=== PATIENT | female | born 1990 | race Caucasian/White ===

== ENCOUNTER 2018-03-12 07:10 | Inpatient (IN) | payer OTHER ==
[2018-03-12] MEDS ORDERED: Ondansetron 4 MG/2 ML SDV IVPUSH PRN ×2 (07:13→09:50)
[2018-03-12] MEDS ORDERED: Nalbuphine 20 MG/ML 1 ML Syringe IVPUSH PRN (07:13)
[2018-03-12] MEDS ORDERED: Misoprostol 100 MCG Tab VAG PRN (07:13)
[2018-03-12] MEDS ORDERED: Sodium Chloride 0.9% 10 ML Syringe FLUSH PRN (07:13)
[2018-03-12] MEDS ORDERED: Oxytocin/Lactated Ringers 10 UNIT/1,000 ML BAG IV SCH ×2 (07:15)
--- NOTE | 2018-03-12 07:16 | PCM.LDHP ---
L&D History of Present Illness - General Date of Service: 03/12/18 Admit Problem/Dx: Patient Status Order with Admit Dx/Problem 03/12/18 07:13 Patient Status [ADT] Routine Admission Diagnosis/Problem Admission Diagnosis/Problem Gestational hypertension Source of Information: Patient History Limitations: Reports: No Limitations - History of Present Illness Introduction:: Patient is a 27 y/o at 37 3/7 wks who presents for IOL for gestational HTN. Doing well since I've seen her last. No issues with headaches, vision changes, RUQ pain. No other concerns - Related Data Allergies/Adverse Reactions: Allergies Allergy/AdvReac Type Severity Reaction Status Date / Time No Known Allergies Allergy Verified 03/12/18 07:46 Home Medications: Home Meds PNV95/Ferrous Fumarate/FA [ Tablet] 1 tab PO DAILY 03/12/18 [History] Past Medical History Genitourinary History: Reports: Pyelonephritis, UTI, Recurrent Neurological History: Reports: Headaches, Chronic - Past Surgical History HEENT Surgical History: Reports: Oral Surgery (Jaw surgery) Male Surgical History: Reports: Other (See Below) (Bladder/reflux procedure as child) Musculoskeletal Surgical History: Reports: Shoulder Surgery (Right) Social & Family History - Tobacco Use Smoking Status *Q: Never Smoker - Alcohol Use Alcohol Use History: No - Recreational Drug Use Recreational Drug Use: No H&P Review of Systems - Review of Systems: Review Of Systems: See Below General: Reports: No Symptoms Pulmonary: Reports: No Symptoms Cardiovascular: Reports: No Symptoms Gastrointestinal: Reports: No Symptoms Genitourinary: Reports: No Symptoms Musculoskeletal: Reports: No Symptoms Psychiatric: Reports: No Symptoms Neurological: Reports: No Symptoms L&D Exam - Exam Exam: See Below - OB Specific Contraction Intensity: Irritability Movement: Active Heart Tones: Present Heart Tones per Min: 140 Heart Rate (FHR) Variability: Moderate (6-25 bmp) Presentation: Vertex - Rob Score Rob Score Cervix Position: Posterior Rob Score Consistency: Medium Rob Score Effacement: 31-50% Rob Score Dilation: 1-2 cm Rob Score Infant's Station: -2 Rob Score Total: 4 - Exam General: Alert, Oriented, Cooperative Lungs: Clear to Auscultation, Normal Respiratory Effort Cardiovascular: Regular Rate, Regular Rhythm GI/Abdominal Exam: Soft, Non-Tender Genitourinary: Normal external exam Extremities: Normal Inspection Skin: Warm, Dry, Intact - Patient Data Result Diagrams: 03/12/18 07:30 03/12/18 07:30 - Problem List (1) 37 weeks gestation of SNOMED Code(s): 54690176 ICD Code: Z3A.37 - 37 WEEKS GESTATION OF Status: Acute Current Visit: Yes (2) Gestational hypertension SNOMED Code(s): 556900938, 353927851 ICD Code: O13.9 - GESTATIONAL HTN W/O SIGNIFICANT PROTEINURIA, UNSP TRIMESTER Status: Acute Current Visit: Yes Problem List Initiated/Reviewed/Updated: Yes Orders Last 24hrs: Active Orders 24 hr Category Date Time Status Patient Status [ADT] Routine ADT 03/12/18 07:13 Ordered Communication Order [RC] ASDIRECTED Care 03/12/18 07:13 Ordered Communication Order [RC] ASDIRECTED Care 03/12/18 07:13 Ordered Communication Order [RC] ASDIRECTED Care 03/12/18 07:13 Ordered Heart Tones [RC] ASDIRECTED Care 03/12/18 07:13 Ordered Monitoring [RC] INTERMITTENT Care 03/12/18 07:13 Ordered Non Stress Test [RC] PER UNIT ROUTINE Care 03/12/18 07:13 Ordered Non Stress Test [RC] PER UNIT ROUTINE Care 03/12/18 07:13 Ordered Notify Provider [RC] ASDIRECTED Care 03/12/18 07:13 Ordered Notify Provider [RC] PRN Care 03/12/18 07:13 Ordered Peripheral IV Care [RC] . DIRECTED Care 03/12/18 07:13 Ordered Vaginal Exam [RC] ASDIRECTED Care 03/12/18 07:13 Ordered Vital Signs [RC] ASDIRECTED Care 03/12/18 07:13 Ordered Vital Signs [RC] PER UNIT ROUTINE Care 03/12/18 07:13 Ordered Regular Diet [DIET] Diet 03/12/18 Breakfast Ordered ALANINE AMINOTRANSFERASE,ALT [CHEM] Routine Lab 03/12/18 07:13 Ordered ASPARTATE AMNIOTRANSFERASE,AST [CHEM] Routine Lab 03/12/18 07:13 Ordered CBC W/O DIFF,HEMOGRAM [HEME] Routine Lab 03/12/18 07:13 Ordered CREATININE W/GFR [CHEM] Routine Lab 03/12/18 07:13 Ordered PROTEIN/CREATININE RATIO,URINE [URCHEM] Routine Lab 03/12/18 07:13 Ordered RAPID PLASMA REAGIN,RPR [CHEM] Routine Lab 03/12/18 07:13 Ordered TYPE AND SCREEN [BBK] Routine Lab 03/12/18 07:13 Ordered Lactated Ringers [Ringers, Lactated] 1,000 ml Med 03/12/18 07:15 Ordered IV ASDIRECTED Nalbuphine [Nubain] Med 03/12/18 07:13 Ordered 10 mg IVPUSH Q2H PRN Ondansetron [Zofran] Med 03/12/18 07:13 Ordered 4 mg IVPUSH Q4H PRN Oxytocin/Lactated Ringers [Pitocin in LR 10 Units/1,000 Med 03/12/18 07:15 Ordered ML] 10 unit in 1,000 ml IV .CONTINUOUS Oxytocin/Lactated Ringers [Pitocin in LR 10 Units/1,000 Med 03/12/18 07:15 Ordered ML] 10 unit in 1,000 ml IV TITRATE Sodium Chloride 0.9% [Saline Flush] Med 03/12/18 07:13 Ordered 10 ml FLUSH ASDIRECTED PRN miSOPROStol [Cytotec] Med 03/12/18 07:13 Ordered 25 mcg VAG Q4H PRN Electronic Heart Tones Ext w TOCO [WOMSER] Oth 03/12/18 07:13 Ordered Routine Electronic Heart Tones Internal [WOMSER] Per Unit Oth 03/12/18 07:13 Ordered Routine Peripheral IV Insertion Adult [OM.PC] Routine Oth 03/12/18 07:13 Ordered Resuscitation Status Routine Resus Stat 03/12/18 07:13 Ordered Assessment/Plan Comment:: 27 y/o at 37 3/7 wks presents for IOL * Labs * GBS negative, no need for antibiotics * Cytotec to be placed. Roman bulb to be inserted when able. * Pain management per patient preference * Anticipate
[2018-03-12] MEDS: Misoprostol 25 MCG (1/4 of 100 MCG) Tab VAG PRN ×3 (08:07→16:16)
[2018-03-12] MEDS ORDERED: fentaNYL 100 MCG/2 ML SDV EPIDUR PRN (09:50)
[2018-03-12] MEDS ORDERED: ePHEDrine 50 MG/ML SDV IVPUSH PRN (09:50)
--- NOTE | 2018-03-12 09:53 | PCM.PREANE ---
Preanesthetic Assessment - Anesthesia/Transfusion/Family Hx Anesthesia History: Prior Anesthesia Without Reaction Family History of Anesthesia Reaction: No Transfusion History: No Prior Transfusion(s) Intubation History: Unknown - Review of Systems General: No Symptoms Pulmonary: No Symptoms Cardiovascular: No Symptoms (Gestational HTN noted with last few months of .), Edema (bilateral peripheral with ) Gastrointestinal: No Symptoms Neurological: No Symptoms Other: Reports: None - Physical Assessment NPO Status Date: 03/12/18 NPO Status Time: 09:00 Pulse: 78 O2 Sat by Pulse Oximetry: 99 Respiratory Rate: 16 Blood Pressure: 140/98 Temperature: 36.5 C Vital Signs: Last Vital Signs Temp 36.5 C 03/12/18 07:13 Pulse 78 03/12/18 07:13 Resp 16 03/12/18 07:13 BP 140/98 H 03/12/18 07:13 Pulse Ox Height: 1.73 m Weight: 99.904 kg ASA Class: 2 Mental Status: Alert & Oriented x3 Airway Class: Mallampati = 2 Dentition: Reports: Normal Dentition, Caries Thyro-Mental Finger Breadths: 3 Mouth Opening Finger Breadths: 3 ROM/Head Extension: Full Lungs: Clear to Auscultation, Normal Respiratory Effort Cardiovascular: Regular Rate, Regular Rhythm, No Murmurs - Lab Values: Laboratory Last Values WBC 11.26 K/mm3 (3.98-10.04) H 03/12/18 07:30 RBC 3.91 M/mm3 (3.98-5.22) L 03/12/18 07:30 Hgb 9.8 gm/L (11.2-15.7) L 03/12/18 07:30 Hct 30.9 % (34.1-44.9) L 03/12/18 07:30 MCV 79.0 fl (79.4-94.8) L 03/12/18 07:30 MCH 25.1 pg (25.6-32.2) L 03/12/18 07:30 MCHC 31.7 g/dl (32.2-35.5) L 03/12/18 07:30 RDW Std Deviation 43.7 fL (36.4-46.3) 03/12/18 07:30 Plt Count 281 K/mm3 (182-369) 03/12/18 07:30 MPV 11.5 fl (9.4-12.3) 03/12/18 07:30 Creatinine 0.8 mg/dL (0.55-1.02) 03/12/18 07:30 Est Cr Clr Drug Dosing 105.61 mL/min 03/12/18 07:30 Estimated GFR (MDRD) > 60 mL/min (>60) 03/12/18 07:30 AST 15 U/L (15-37) 03/12/18 07:30 ALT 13 U/L (14-59) L 03/12/18 07:30 Blood Type A POSITIVE 03/12/18 07:30 Gel Antibody Screen Negative 03/12/18 07:30 Above labs reviewed and noted and within acceptable ranges to proceed with epidural if desired. - Allergies Allergies/Adverse Reactions: Allergies Allergy/AdvReac Type Severity Reaction Status Date / Time No Known Allergies Allergy Verified 03/12/18 07:46 - Anesthesia Plan Pre-Op Medication Ordered: None - Acknowledgements Anesthesia Type Planned: Epidural Pt an Appropriate Candidate for the Planned Anesthesia: Yes Alternatives and Risks of Anesthesia Discussed w Pt/Guardian: Yes Pt/Guardian Understands and Agrees with Anesthesia Plan: Yes PreAnesthesia Questionnaire Cardiovascular History: Reports: Other (See Below) Other Cardiovascular History: gestational hypertension Other Genitourinary History: 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: - Past Surgical History Musculoskeletal Surgical History: Reports: Shoulder Surgery - SUBSTANCE USE Smoking Status *Q: Never Smoker Second Hand Smoke Exposure: No Recreational Drug Use History: No - HOME MEDS Home Medications: Home Meds PNV95/Ferrous Fumarate/FA [ Tablet] 1 tab PO DAILY 03/12/18 [History] - CURRENT (IN HOUSE) MEDS Current Meds: Current Medications Fentanyl/Bupivacaine HCl (Fentanyl/Bupivacaine/Ns 2 Mcg-0.125% 100 Ml) 100 ml EPIDUR ASDIRECTED CONNOR Lactated Ringer's (Ringers, Lactated) 1,000 mls @ 40 mls/hr IV ASDIRECTED CONNOR Oxytocin/Lactated Ringer's (Pitocin In Lr 10 Units/1,000 Ml) 10 unit in 1,000 mls @ 12 mls/hr IV TITRATE CONNOR; Protocol Oxytocin/Lactated Ringer's (Pitocin In Lr 10 Units/1,000 Ml) 10 unit in 1,000 mls @ 500 mls/hr IV .CONTINUOUS CONNOR Misoprostol (Cytotec) 25 mcg VAG Q4H PRN PRN Reason: cervical ripening Last Admin: 03/12/18 08:07 Dose: 25 mcg Nalbuphine HCl (Nubain) 10 mg IVPUSH Q2H PRN PRN Reason: pain Ondansetron HCl (Zofran) 4 mg IVPUSH Q4H PRN PRN Reason: Nausea/Vomiting Sodium Chloride (Saline Flush) 10 ml FLUSH ASDIRECTED PRN PRN Reason: Keep Vein Open Discontinued Medications Misoprostol (Cytotec) 25 mcg VAG Q4H PRN PRN Reason: cervical ripening
[2018-03-12] MEDS ORDERED: Bupivacaine/fentaNYL/NS 100 ML Bag EPIDUR SCH (10:00)
--- NOTE | 2018-03-12 12:04 | PCM.PNLD ---
Labor Progress Note - VS & Meds Vital Signs: Last Vital Signs Temp 36.5 C 03/12/18 10:09 Pulse 78 03/12/18 10:09 Resp 16 03/12/18 10:09 BP 140/98 H 03/12/18 10:09 Pulse Ox 99 03/12/18 10:09 Active Medications: Current Medications Ephedrine Sulfate (Ephedrine Sulfate) 5 mg IVPUSH ASDIRECTED PRN PRN Reason: Hypotension Fentanyl (Sublimaze) 100 mcg EPIDUR Q3H PRN PRN Reason: Pain Fentanyl/Bupivacaine HCl (Fentanyl/Bupivacaine/Ns 2 Mcg-0.125% 100 Ml) 100 ml EPIDUR ASDIRECTED CONNOR Lactated Ringer's (Ringers, Lactated) 1,000 mls @ 40 mls/hr IV ASDIRECTED CONNOR Oxytocin/Lactated Ringer's (Pitocin In Lr 10 Units/1,000 Ml) 10 unit in 1,000 mls @ 12 mls/hr IV TITRATE CONNOR; Protocol Oxytocin/Lactated Ringer's (Pitocin In Lr 10 Units/1,000 Ml) 10 unit in 1,000 mls @ 500 mls/hr IV .CONTINUOUS CONNOR Misoprostol (Cytotec) 25 mcg VAG Q4H PRN PRN Reason: cervical ripening Last Admin: 03/12/18 12:01 Dose: 25 mcg Nalbuphine HCl (Nubain) 10 mg IVPUSH Q2H PRN PRN Reason: pain Ondansetron HCl (Zofran) 4 mg IVPUSH Q4H PRN PRN Reason: Nausea/Vomiting Ondansetron HCl (Zofran) 4 mg IVPUSH ONETIME PRN PRN Reason: Nausea/Vomiting Sodium Chloride (Saline Flush) 10 ml FLUSH ASDIRECTED PRN PRN Reason: Keep Vein Open Discontinued Medications Misoprostol (Cytotec) 25 mcg VAG Q4H PRN PRN Reason: cervical ripening - Uterine Contractions Uterine Monitoring Mode: External [place] Contraction Intensity: Irritability Uterine Resting Tone: Soft - Monitoring Monitor Mode: External Ultrasound Heart Rate (FHR) Baseline: 145 Heart Rate (FHR) Variability: Moderate (6-25 bmp) Accelerations: Present, 15x15 Decelerations: None - Vaginal Exam Dilation (cm): 1 Effacement (Percent): 50 Station: -3 Cervical Position: Midposition - Labor Progress (Free Text) Labor Progress: Doing well. Some cramping with Cytotec. Roman bulb and 2nd cytotec placed. Will reassess in another 4 hours.
[2018-03-12] MEDS ORDERED: Misoprostol 25 MCG (1/4 of 100 MCG) Tab ONE (19:25)
--- NOTE | 2018-03-12 19:40 | PCM.PNLD ---
Labor Progress Note - VS & Meds Vital Signs: Last Vital Signs Temp 36.5 C 03/12/18 10:09 Pulse 78 03/12/18 10:09 Resp 16 03/12/18 10:09 BP 140/98 H 03/12/18 10:09 Pulse Ox 99 03/12/18 10:09 Active Medications: Current Medications Ephedrine Sulfate (Ephedrine Sulfate) 5 mg IVPUSH ASDIRECTED PRN PRN Reason: Hypotension Fentanyl (Sublimaze) 100 mcg EPIDUR Q3H PRN PRN Reason: Pain Fentanyl/Bupivacaine HCl (Fentanyl/Bupivacaine/Ns 2 Mcg-0.125% 100 Ml) 100 ml EPIDUR ASDIRECTED CONNOR Lactated Ringer's (Ringers, Lactated) 1,000 mls @ 40 mls/hr IV ASDIRECTED CONNOR Oxytocin/Lactated Ringer's (Pitocin In Lr 10 Units/1,000 Ml) 10 unit in 1,000 mls @ 12 mls/hr IV TITRATE CONNOR; Protocol Oxytocin/Lactated Ringer's (Pitocin In Lr 10 Units/1,000 Ml) 10 unit in 1,000 mls @ 500 mls/hr IV .CONTINUOUS CONNOR Nalbuphine HCl (Nubain) 10 mg IVPUSH Q2H PRN PRN Reason: pain Ondansetron HCl (Zofran) 4 mg IVPUSH Q4H PRN PRN Reason: Nausea/Vomiting Ondansetron HCl (Zofran) 4 mg IVPUSH ONETIME PRN PRN Reason: Nausea/Vomiting Sodium Chloride (Saline Flush) 10 ml FLUSH ASDIRECTED PRN PRN Reason: Keep Vein Open Discontinued Medications Misoprostol (Cytotec) 25 mcg VAG Q4H PRN PRN Reason: cervical ripening Misoprostol (Cytotec) 25 mcg VAG Q4H PRN PRN Reason: cervical ripening Last Admin: 03/12/18 16:16 Dose: 25 mcg Misoprostol (Cytotec) Confirm Administered Dose 25 mcg .ROUTE .STK-MED ONE Stop: 03/12/18 19:26 - Uterine Contractions Uterine Monitoring Mode: External [place] Contraction Intensity: Mild to Moderate Uterine Resting Tone: Soft - Monitoring Monitor Mode: External Ultrasound Heart Rate (FHR) Baseline: 140 Heart Rate (FHR) Variability: Moderate (6-25 bmp) Accelerations: Present, 15x15 Decelerations: Variable, Intermittent (<50% x 20 min) Strip Review: Category II - Vaginal Exam Dilation (cm): 3-4 Effacement (Percent): 75 Station: -2 Cervical Position: Posterior - Labor Progress (Free Text) Labor Progress: Doing well. Roman bulb just removed. S/p 3 doses of cytotec. Will proceed with pitocin. Discussed AROM if needed. She agrees. BP's mostly mild range. Feeling well otherwise.
[2018-03-12] MEDS: Lactated Ringers 1,000 ML IV SCH (20:15)
[2018-03-12] MEDS ORDERED: Bupivacaine 0.25% 10 ML SDV ONE (22:00)
[2018-03-13] MEDS: Lactated Ringers 1,000 ML IV SCH ×3 (04:24→08:11)
--- NOTE | 2018-03-13 06:40 | PCM.PNLD ---
Labor Progress Note - VS & Meds Vital Signs: Last Vital Signs Temp 36.5 C 03/12/18 10:09 Pulse 78 03/12/18 10:09 Resp 16 03/12/18 10:09 BP 140/98 H 03/12/18 10:09 Pulse Ox 99 03/12/18 10:09 Active Medications: Current Medications Ephedrine Sulfate (Ephedrine Sulfate) 5 mg IVPUSH ASDIRECTED PRN PRN Reason: Hypotension Fentanyl (Sublimaze) 100 mcg EPIDUR Q3H PRN PRN Reason: Pain Fentanyl/Bupivacaine HCl (Fentanyl/Bupivacaine/Ns 2 Mcg-0.125% 100 Ml) 100 ml EPIDUR ASDIRECTED CONNOR Lactated Ringer's (Ringers, Lactated) 1,000 mls @ 40 mls/hr IV ASDIRECTED CONNOR Last Admin: 03/13/18 04:24 Dose: 40 mls/hr Oxytocin/Lactated Ringer's (Pitocin In Lr 10 Units/1,000 Ml) 10 unit in 1,000 mls @ 12 mls/hr IV TITRATE CONNOR; Protocol Last Titration: 03/13/18 04:24 Dose: 14 munits/min, 84 mls/hr Oxytocin/Lactated Ringer's (Pitocin In Lr 10 Units/1,000 Ml) 10 unit in 1,000 mls @ 500 mls/hr IV .CONTINUOUS CNONOR Nalbuphine HCl (Nubain) 10 mg IVPUSH Q2H PRN PRN Reason: pain Ondansetron HCl (Zofran) 4 mg IVPUSH Q4H PRN PRN Reason: Nausea/Vomiting Ondansetron HCl (Zofran) 4 mg IVPUSH ONETIME PRN PRN Reason: Nausea/Vomiting Sodium Chloride (Saline Flush) 10 ml FLUSH ASDIRECTED PRN PRN Reason: Keep Vein Open Discontinued Medications Misoprostol (Cytotec) 25 mcg VAG Q4H PRN PRN Reason: cervical ripening Misoprostol (Cytotec) 25 mcg VAG Q4H PRN PRN Reason: cervical ripening Last Admin: 03/12/18 16:16 Dose: 25 mcg Misoprostol (Cytotec) Confirm Administered Dose 25 mcg .ROUTE .STK-MED ONE Stop: 03/12/18 19:26 Last Admin: 03/12/18 21:49 Dose: Not Given - Uterine Contractions Uterine Monitoring Mode: External [place] Contraction Intensity: Irritability Uterine Resting Tone: Soft - Monitoring Monitor Mode: External Ultrasound Heart Rate (FHR) Baseline: 135 Heart Rate (FHR) Variability: Moderate (6-25 bmp) Accelerations: Present, 15x15 Decelerations: Variable, Intermittent (<50% x 20 min) Strip Review: Category II - Vaginal Exam Dilation (cm): 6 - Labor Progress (Free Text) Labor Progress: Last exam at 0600 by nursing staff shows patient is 6 cm. Pitocin at 14. Continue present management
[2018-03-13] MEDS ORDERED: Misoprostol 200 MCG Tab PO STA (11:32)
--- NOTE | 2018-03-13 11:34 | PCM.DEL ---
L & D Note - General Info Date of Service: 03/13/18 - Delivery Note Labor: Induced by Oxytocin Cervical Ripening Method: Balloon Device, Misoprostil Delivery Outcome: Livebirth Delivery Method: Spontaneous Vaginal Delivery-Single Infant Delivery Mode: Spontaneous Presentation: Right Occiput Anterior (MARY) Nuchal Cord: Present, Reduced Anesthesia Type: Epidural Amniotic Fluid Description: Clear Episiotomy Type: None Laceration: 2nd Degree, Labial Suture type: Vicryl Suture size: 2-0 Placenta: Intact, Spontaneous Cord: 3 Vessels Estimated Blood Loss: 500 Resuscitation Needed: Yes [place]: Bulb Syringe, Stimulated, Warmed, [place] Used, Warmer Used Delivery Comments (Free Text/Narrative):: Patient found to be complete and began pushing. With maternal pushing effort head delivered from an MARY presentation. Nuchal cord present and reduced. With gentle downward traction the shoulders and body delivered. Infant placed on maternal abdomen. Cord clamped and cut. Cord blood obtained. Placenta allowed time to separate and expelled intact. EBL ~500 cc at this point and so patient given 600 mcg of buccal cytotec with good tone of uterus noted. Inspection of the perineum showed bilateral labial tears. These were repaired with separate sutures of running 0 vicryl. - General Info Date of Service: 03/13/18 - Patient Data Vitals - Most Recent: Last Vital Signs Temp 36.5 C 03/12/18 10:09 Pulse 78 03/12/18 10:09 Resp 16 03/12/18 10:09 BP 140/98 H 03/12/18 10:09 Pulse Ox 99 03/12/18 10:09 Weight - Most Recent: 99.904 kg I&O - Last 24 Hours: Intake & Output 03/12/18 03/13/18 03/13/18 22:59 06:59 14:59 Intake Total 0 Balance 0 Lab Results Last 24 Hours: Laboratory Results - last 24 hr 03/12/18 Range/Units 11:00 Ur Random Creatinine 49.2 (30.0-125.0) mg/dL U Random Total Protein < 6.0 (0.0-11.8) mg/dL Protein/Creatinin Ratio TNP Med Orders - Current: Current Medications Ephedrine Sulfate (Ephedrine Sulfate) 5 mg IVPUSH ASDIRECTED PRN PRN Reason: Hypotension Fentanyl (Sublimaze) 100 mcg EPIDUR Q3H PRN PRN Reason: Pain Last Admin: 03/13/18 08:05 Dose: 100 mcg Fentanyl/Bupivacaine HCl (Fentanyl/Bupivacaine/Ns 2 Mcg-0.125% 100 Ml) 100 ml EPIDUR ASDIRECTED CONNOR Last Admin: 03/13/18 08:05 Dose: 100 ml Lactated Ringer's (Ringers, Lactated) 1,000 mls @ 40 mls/hr IV ASDIRECTED CONNOR Last Admin: 03/13/18 08:11 Dose: 40 mls/hr Oxytocin/Lactated Ringer's (Pitocin In Lr 10 Units/1,000 Ml) 10 unit in 1,000 mls @ 12 mls/hr IV TITRATE CONNOR; Protocol Last Titration: 03/13/18 04:24 Dose: 14 munits/min, 84 mls/hr Oxytocin/Lactated Ringer's (Pitocin In Lr 10 Units/1,000 Ml) 10 unit in 1,000 mls @ 500 mls/hr IV .CONTINUOUS CONNOR Last Admin: 03/13/18 11:12 Dose: 500 mls/hr Misoprostol (Cytotec) 600 mcg PO NOW STA Stop: 03/13/18 11:33 Nalbuphine HCl (Nubain) 10 mg IVPUSH Q2H PRN PRN Reason: pain Last Admin: 03/13/18 07:06 Dose: 10 mg Ondansetron HCl (Zofran) 4 mg IVPUSH Q4H PRN PRN Reason: Nausea/Vomiting Ondansetron HCl (Zofran) 4 mg IVPUSH ONETIME PRN PRN Reason: Nausea/Vomiting Sodium Chloride (Saline Flush) 10 ml FLUSH ASDIRECTED PRN PRN Reason: Keep Vein Open Discontinued Medications Misoprostol (Cytotec) 25 mcg VAG Q4H PRN PRN Reason: cervical ripening Misoprostol (Cytotec) 25 mcg VAG Q4H PRN PRN Reason: cervical ripening Last Admin: 03/12/18 16:16 Dose: 25 mcg Misoprostol (Cytotec) Confirm Administered Dose 25 mcg .ROUTE .STK-MED ONE Stop: 03/12/18 19:26 Last Admin: 03/12/18 21:49 Dose: Not Given - Problem List & Annotations (1) 37 weeks gestation of SNOMED Code(s): 32251657 Code(s): Z3A.37 - 37 WEEKS GESTATION OF Status: Acute Current Visit: Yes (2) Gestational hypertension SNOMED Code(s): 832002403, 683592580 Code(s): O13.9 - GESTATIONAL HTN W/O SIGNIFICANT PROTEINURIA, UNSP TRIMESTER Status: Acute Current Visit: Yes Qualifiers: Trimester: third trimester Qualified Code(s): O13.3 - Gestational [ -induced] hypertension without significant proteinuria, third trimester - Problem List Review Problem List Initiated/Reviewed/Updated: Yes - My Orders Last 24 Hours: My Active Orders 03/13/18 11:32 miSOPROStol [Cytotec] 600 mcg PO NOW STA 03/13/18 11:33 Patient Status Manage Transfer [TRANSFER] Routine - Assessment Assessment:: POD#0 from at 37 4/7 wks after IOL For gestational HTN - Plan Plan:: * Routine cares * Encourage * Monitor BP's closely * Discharge home in 2 days
[2018-03-13] MEDS ORDERED: Witch Hazel Medicated Pads 100/Jar TOP PRN (12:57)
[2018-03-13] MEDS ORDERED: Lanolin 100% Cream 7 GM Tube TOP PRN (12:57)
[2018-03-13] MEDS ORDERED: Acetaminophen 325 MG Tab PO PRN (12:57)
[2018-03-13] MEDS ORDERED: Benzocaine/Menthol 20%-0.5% Spray 56 GM Canister TOP PRN (12:57)
[2018-03-13] MEDS ORDERED: Ibuprofen 600 MG Tab PO PRN (12:57)
[2018-03-13] MEDS ORDERED: Docusate Sodium 100 MG Cap PO PRN (12:57)
--- NOTE | 2018-03-14 07:38 | PCM48HPAN ---
Post Anesthesia Note - EVALUATION WITHIN 48HRS OF ANESTHETIC Vital Signs in Normal Range: Yes Patient Participated in Evaluation: Yes Respiratory Function Stable: Yes Airway Patent: Yes Cardiovascular Function Stable: Yes Hydration Status Stable: Yes Pain Control Satisfactory: Yes Nausea and Vomiting Control Satisfactory: Yes Mental Status Recovered: Yes Pulse Rate: 83 Resp Rate: 14 Temperature: 36.7 C Blood Pressure: 123/84 - COMMENTS/OBSERVATIONS Free Text/Narrative:: no anesthesia complications noted
--- NOTE | 2018-03-14 07:57 | PCM.PNPP ---
- General Info Date of Service: 03/14/18 Functional Status: Reports: Pain Controlled, Tolerating Diet, Ambulating, Urinating - Review of Systems General: Reports: No Symptoms Pulmonary: Reports: No Symptoms Cardiovascular: Reports: No Symptoms Gastrointestinal: Reports: No Symptoms Genitourinary: Reports: No Symptoms Musculoskeletal: Reports: No Symptoms Neurological: Reports: No Symptoms - Patient Data Vital Signs - Most Recent: Last Vital Signs Temp 36.7 C 03/14/18 07:38 Pulse 83 03/14/18 07:38 Resp 14 03/14/18 07:38 BP 123/84 03/14/18 07:38 Pulse Ox 99 03/14/18 03:51 Weight - Most Recent: 99.904 kg I&O - Last 24 Hours: Intake & Output 03/13/18 03/14/18 03/14/18 22:59 06:59 14:59 Intake Total 70 Balance 70 Lab Results - Last 24 Hours: Laboratory Results - last 24 hr 03/12/18 Range/Units 07:30 RPR Non-reactive (NONREACTIVE) Med Orders - Current: Current Medications Acetaminophen (Tylenol) 650 mg PO Q4H PRN PRN Reason: mild pain or fever Benzocaine/Menthol (Dermoplast Pain Relief [place]) 0 gm TOP ASDIRECTED PRN PRN Reason: Perineal Comfort Measure Last Admin: 03/13/18 15:44 Dose: 1 canister Docusate Sodium (Colace) 100 mg PO BID PRN PRN Reason: Constipation Emollient Ointment (Lansinoh Hpa) 0 gm TOP ASDIRECTED PRN PRN Reason: Sore Nipples Ibuprofen (Motrin) 600 mg PO Q6H PRN PRN Reason: Mild pain or fever Last Admin: 03/13/18 13:52 Dose: 600 mg Witch Melanie (Tucks) 1 pad TOP ASDIRECTED PRN PRN Reason: Hemorrhoid pain Last Admin: 03/13/18 15:44 Dose: 1 canister Discontinued Medications Bupivacaine HCl (Sensorcaine-Mpf 0.25%) 10 ml .ROUTE .STK-MED ONE Stop: 03/12/18 22:01 Ephedrine Sulfate (Ephedrine Sulfate) 5 mg IVPUSH ASDIRECTED PRN PRN Reason: Hypotension Fentanyl (Sublimaze) 100 mcg EPIDUR Q3H PRN PRN Reason: Pain Last Admin: 03/13/18 08:05 Dose: 100 mcg Fentanyl/Bupivacaine HCl (Fentanyl/Bupivacaine/Ns 2 Mcg-0.125% 100 Ml) 100 ml EPIDUR ASDIRECTED [facility] Last Admin: 03/13/18 08:05 Dose: 100 ml Lactated Ringer's (Ringers, Lactated) 1,000 mls @ 40 mls/hr IV ASDIRECTED [facility] Last Admin: 03/13/18 08:11 Dose: 40 mls/hr Oxytocin/Lactated Ringer's (Pitocin In Lr 10 Units/1,000 Ml) 10 unit in 1,000 mls @ 12 mls/hr IV TITRATE [facility]; Protocol Last Titration: 03/13/18 04:24 Dose: 14 munits/min, 84 mls/hr Oxytocin/Lactated Ringer's (Pitocin In Lr 10 Units/1,000 Ml) 10 unit in 1,000 mls @ 500 mls/hr IV .CONTINUOUS [facility] Last Admin: 03/13/18 11:12 Dose: 500 mls/hr Misoprostol (Cytotec) 25 mcg VAG Q4H PRN PRN Reason: cervical ripening Misoprostol (Cytotec) 25 mcg VAG Q4H PRN PRN Reason: cervical ripening Last Admin: 03/12/18 16:16 Dose: 25 mcg Misoprostol (Cytotec) Confirm Administered Dose 25 mcg .ROUTE .STK-MED ONE Stop: 03/12/18 19:26 Last Admin: 03/12/18 21:49 Dose: Not Given Misoprostol (Cytotec) 600 mcg PO NOW STA Stop: 03/13/18 11:33 Last Admin: 03/13/18 11:18 Dose: 600 mcg Nalbuphine HCl (Nubain) 10 mg IVPUSH Q2H PRN PRN Reason: pain Last Admin: 03/13/18 07:06 Dose: 10 mg Ondansetron HCl (Zofran) 4 mg IVPUSH Q4H PRN PRN Reason: Nausea/Vomiting Ondansetron HCl (Zofran) 4 mg IVPUSH ONETIME PRN PRN Reason: Nausea/Vomiting Sodium Chloride (Saline Flush) 10 ml FLUSH ASDIRECTED PRN PRN Reason: Keep Vein Open - Interaction Disposition, : [place] in Room with Family Infant Interaction: Holding Infant Feeding: Attempted ; Nursed Fair/Poor Support Person: - Recovery Exam Fundal Tone: Firm Fundal Level: 1 Fingerbreadths Below Umbilicus Fundal Placement: Midline Lochia Amount: Scant, Small Lochia Color: Rubra/Red Bladder Status: Voiding Urinary Elimination: Voided - Exam General: Alert, Oriented, Cooperative GI/Abdominal Exam: Soft, Non-Tender Extremities: Normal Inspection Skin: Warm, Dry, Intact - Problem List & Annotations (1) 37 weeks gestation of SNOMED Code(s): 69653823 Code(s): Z3A.37 - 37 WEEKS GESTATION OF Status: Acute Current Visit: Yes (2) Gestational hypertension SNOMED Code(s): 454096171, 779559314 Code(s): O13.9 - GESTATIONAL HTN W/O SIGNIFICANT PROTEINURIA, UNSP TRIMESTER Status: Acute Current Visit: Yes Qualifiers: Trimester: third trimester Qualified Code(s): O13.3 - Gestational [ -induced] hypertension without significant proteinuria, third trimester (3) Vaginal delivery SNOMED Code(s): 781221118 Code(s): O80 - ENCOUNTER FOR FULL-TERM UNCOMPLICATED DELIVERY Status: Acute Current Visit: Yes - Problem List Review Problem List Initiated/Reviewed/Updated: Yes - My Orders Last 24 Hours: My Active Orders 03/13/18 12:57 Activity as Tolerated [RC] PER UNIT ROUTINE Vital Signs [RC] 03,09,15,21 Acetaminophen [Tylenol] 650 mg PO Q4H PRN Benzocaine/Menthol [Dermoplast Pain Relief [place]] See Dose Instructions TOP ASDIRECTED PRN Docusate Sodium [Colace] 100 mg PO BID PRN Ibuprofen [Motrin] 600 mg PO Q6H PRN Lanolin [Lansinoh HPA] See Dose Instructions TOP ASDIRECTED PRN Witch Melanie [Tucks] 1 pad TOP ASDIRECTED PRN Assess Lochia [WOMSER] Per Unit Routine Assess Uterine Involution [WOMSER] Per Unit Routine Breast Pump [WOMSER] Per Unit Routine Heat Therapy [OM.PC] PRN Ice Therapy [OM.PC] Per Unit Routine Perineal Care [OM.PC] Per Unit Routine Peripheral IV Discontinue [OM.PC] Routine Sitz Bath [OM.PC] Per Unit Routine 03/13/18 Lunch Regular Diet [DIET] 03/14/18 12:57 Heat Therapy [OM.PC] PRN - Assessment Assessment:: POD#1 from at 37 4/7 wks after IOL For gestational HTN - Plan Plan:: * Routine cares * Encourage breast feeding * BP's normal to mild range. Will continue to follow closely on L&D. Will need follow up in clinic in 1 week * Discharge home tomorrow
--- NOTE | 2018-03-15 08:46 | PCM.DCSUM1 ---
Discharge Summary - Hospital Course Free Text/Narrative:: 27-year-old 1 now para 1001 White female admitted for induction of labor for gestational hypertension. Arrested labor well and delivered on 2017. Using induced with balloon and misoprostol. She had a herbert spontaneous vaginal delivery in right occiput anterior position. Nuchal cord was present and was reduced. Epidural for analgesia. Amniotic fluid was clear. She had a second-degree labial tear which was repaired with 2-0 Vicryl. Umbilical cord showed 3 vessels. Estimated blood loss was 500 mL. Patient plans to nurse and is having some frustrations with this but is doing well. her blood pressures within normal. Her vital signs have been stable. She is having minimal lochia, was ambulating well. She has +1 pitting edema. Findings consistent with gestational hypertension. Patient is desiring discharge home. Diagnosis: Stroke: No - Discharge Data Discharge Date: 03/15/18 Discharge Disposition: Home, Self-Care 01 Condition: Good - Patient Instructions Diet: Regular Diet as Tolerated (Nursing diet with increased calories and calcium as directed) Activity: As Tolerated (No intercourse or tampons until bleeding resolves.) Driving: Do Not Drive (1 day) Showering/Bathing: May Shower (May take a bath) Notify Provider of: Fever, Increased Pain, Swelling and Redness, Nausea and/or Vomiting - Discharge Plan Home Medications: Home Meds PNV95/Ferrous Fumarate/FA [ Tablet] 1 tab PO DAILY 03/12/18 [History] Acetaminophen [Tylenol] 650 mg PO Q4H PRN tablet 03/15/18 [Rx] Docusate Sodium [Colace] 100 mg PO BID PRN cap 03/15/18 [Rx] Ibuprofen [Motrin] 600 mg PO Q6H PRN tablet 03/15/18 [Rx] Referrals: Catia Gamboa MD [Primary Care Provider] - ([facility] - Discharge Summary/Plan Comment DC Time >30 min.: No Discharge Summary/Plan Comment: Discharge instructions: 1. Discharge home 2. Diet, activity and follow-up discussed with patient. Recommend nursing diet with increased calories and calcium. 3. Precautions given concern increased pain, bleeding, temperature, signs/ symptoms of DVT/PE. 4. Medications per home medication was printed, discussed with and given to the patient. 5. Return to clinic-Dr. Gamboa- [facility] in 1 week. Diagnosis: 1. Gestational hypertension 2. 37-3/7 week -delivered Condition: Good - Patient Data Vitals - Most Recent: Last Vital Signs Temp 36.4 C 03/15/18 03:27 Pulse 80 03/15/18 03:27 Resp 16 03/15/18 03:27 BP 130/84 03/15/18 03:27 Pulse Ox 100 03/15/18 03:27 Weight - Most Recent: 99.904 kg Med Orders - Current: Current Medications Acetaminophen (Tylenol) 650 mg PO Q4H PRN PRN Reason: mild pain or fever Benzocaine/Menthol (Dermoplast Pain Relief [place]) 0 gm TOP ASDIRECTED PRN PRN Reason: Perineal Comfort Measure Last Admin: 03/13/18 15:44 Dose: 1 canister Docusate Sodium (Colace) 100 mg PO BID PRN PRN Reason: Constipation Emollient Ointment (Lansinoh Hpa) 0 gm TOP ASDIRECTED PRN PRN Reason: Sore Nipples Ibuprofen (Motrin) 600 mg PO Q6H PRN PRN Reason: Mild pain or fever Last Admin: 03/13/18 13:52 Dose: 600 mg Witch Melanie (Tucks) 1 pad TOP ASDIRECTED PRN PRN Reason: Hemorrhoid pain Last Admin: 03/13/18 15:44 Dose: 1 canister Discontinued Medications Bupivacaine HCl (Sensorcaine-Mpf 0.25%) 10 ml .ROUTE .STK-MED ONE Stop: 03/12/18 22:01 Ephedrine Sulfate (Ephedrine Sulfate) 5 mg IVPUSH ASDIRECTED PRN PRN Reason: Hypotension Fentanyl (Sublimaze) 100 mcg EPIDUR Q3H PRN PRN Reason: Pain Last Admin: 03/13/18 08:05 Dose: 100 mcg Fentanyl/Bupivacaine HCl (Fentanyl/Bupivacaine/Ns 2 Mcg-0.125% 100 Ml) 100 ml EPIDUR ASDIRECTED [facility] Last Admin: 03/13/18 08:05 Dose: 100 ml Lactated Ringer's (Ringers, Lactated) 1,000 mls @ 40 mls/hr IV ASDIRECTED [facility] Last Admin: 03/13/18 08:11 Dose: 40 mls/hr Oxytocin/Lactated Ringer's (Pitocin In Lr 10 Units/1,000 Ml) 10 unit in 1,000 mls @ 12 mls/hr IV TITRATE [facility]; Protocol Last Titration: 03/13/18 04:24 Dose: 14 munits/min, 84 mls/hr Oxytocin/Lactated Ringer's (Pitocin In Lr 10 Units/1,000 Ml) 10 unit in 1,000 mls @ 500 mls/hr IV .CONTINUOUS [facility] Last Admin: 03/13/18 11:12 Dose: 500 mls/hr Misoprostol (Cytotec) 25 mcg VAG Q4H PRN PRN Reason: cervical ripening Misoprostol (Cytotec) 25 mcg VAG Q4H PRN PRN Reason: cervical ripening Last Admin: 03/12/18 16:16 Dose: 25 mcg Misoprostol (Cytotec) Confirm Administered Dose 25 mcg .ROUTE .STK-MED ONE Stop: 03/12/18 19:26 Last Admin: 03/12/18 21:49 Dose: Not Given Misoprostol (Cytotec) 600 mcg PO NOW STA Stop: 03/13/18 11:33 Last Admin: 03/13/18 11:18 Dose: 600 mcg Nalbuphine HCl (Nubain) 10 mg IVPUSH Q2H PRN PRN Reason: pain Last Admin: 03/13/18 07:06 Dose: 10 mg Ondansetron HCl (Zofran) 4 mg IVPUSH Q4H PRN PRN Reason: Nausea/Vomiting Ondansetron HCl (Zofran) 4 mg IVPUSH ONETIME PRN PRN Reason: Nausea/Vomiting Sodium Chloride (Saline Flush) 10 ml FLUSH ASDIRECTED PRN PRN Reason: Keep Vein Open
== END 2018-03-15 15:26 | disposition home or self-care (01) | DRG 807 ==
LOC: JD.OB 07:10 → OBSVTOIN 03-13 10:56 → JD.OB 03-13 10:57
PROVIDERS: ADMIT Obstetrics & Gynecology; ATTEND Obstetrics & Gynecology
PROC: 10E0XZZ Delivery of Products of Conception, External Approach (ICD-10-PCS; principal; 2018-03-13)
PROC: 0KQM0ZZ Repair Perineum Muscle, Open Approach (ICD-10-PCS; 2018-03-13)
PROC: 3E033VJ Introduction of Other Hormone into Peripheral Vein, Percutaneous Approach (ICD-10-PCS; 2018-03-13)
PROC: 3E0P7VZ Introduction of Hormone into Female Reproductive, Via Natural or Artificial Opening (ICD-10-PCS; 2018-03-13)
PROC: 00HU33Z Insertion of Infusion Device into Spinal Canal, Percutaneous Approach (ICD-10-PCS; 2018-03-13)
PROC: 3E0R3BZ Introduction of Anesthetic Agent into Spinal Canal, Percutaneous Approach (ICD-10-PCS; 2018-03-13)
DX: O13.4 Gestational [pregnancy-induced] hypertension without significant proteinuria, complicating childbirth (principal); Z37.0 Single live birth; O70.1 Second degree perineal laceration during delivery; O69.81X0 Labor and delivery complicated by cord around neck, without compression, not applicable or unspecified; Z3A.37 37 weeks gestation of pregnancy
CPT/HCPCS: 36415; 51701; 51702; 59025; 59409; 82565; 82570; 84156; 84450; 84460; 85027; 86592; 86850; 86900; 86901; A9270-GY; J2300; J2590; J3010; J3490; J7120

== ENCOUNTER 2022-02-13 06:56 | Inpatient (IN) | payer OTHER ==
[~2022-02-13 06:56] MED LIST: Bupivacaine 0.25% 10 ML SDV ONE; Lidocaine 1% 10 ML MDV ONE
[2022-02-13] MEDS ORDERED: Ondansetron 4 MG/2 ML SDV IVPUSH PRN (07:04)
[2022-02-13] MEDS ORDERED: Acetaminophen 325 MG Tab PO PRN ×2 (07:04→21:30)
[2022-02-13] MEDS ORDERED: Nalbuphine HCl 10 MG/ 1ML Amp IVPUSH PRN (07:04)
[2022-02-13] MEDS ORDERED: Sodium Chloride 0.9% 10 ML Syringe FLUSH PRN (07:04)
[2022-02-13] MEDS ORDERED: Lactated Ringers 1,000 ML IV SCH (07:15)
[2022-02-13] MEDS ORDERED: Oxytocin/Lactated Ringers 10 UNIT/1,000 ML BAG IV SCH (07:15)
[2022-02-13] MEDS ORDERED: Ampicillin 2 GM in Sodium Chloride 0.9% 100 ML IV ONE (07:30)
[2022-02-13] MEDS: Oxytocin/Lactated Ringers 10 UNIT/1,000 ML BAG IV SCH ×2 (08:09→19:55)
[2022-02-13] MEDS ORDERED: Sodium Chloride 0.9% 10 ML Syringe FLUSH SCH (09:00)
[2022-02-13] MEDS ORDERED: ePHEDrine 50 MG/ML SDV IVPUSH PRN (09:44)
[2022-02-13] MEDS ORDERED: fentaNYL 100 MCG/2 ML SDV EPIDUR PRN (09:44)
[2022-02-13] MEDS ORDERED: Bupivacaine/fentaNYL/NS 100 ML Bag EPIDUR PRN (09:44)
[2022-02-13] MEDS ORDERED: diphenhydrAMINE 50 MG/ML SDV IVPUSH PRN (09:44)
[2022-02-13] MEDS: Ampicillin 1 GM in Sodium Chloride 0.9% 100 ML IV SCH ×3 (12:09→19:54)
[2022-02-13] MEDS ORDERED: Witch Hazel Medicated Pads 40/Jar TOP PRN (21:30)
[2022-02-13] MEDS ORDERED: Docusate Sodium 100 MG Cap PO PRN (21:30)
[2022-02-13] MEDS ORDERED: Benzocaine/Menthol 20%-0.5% Spray 78 GM Cannister TOP PRN (21:30)
[2022-02-13] MEDS ORDERED: Ibuprofen 600 MG Tab PO PRN (21:30)
== END 2022-02-15 10:10 | disposition home or self-care (01) | DRG 807 ==
LOC: JD.OB 06:56 → OBSVTOIN 20:34 → JD.OB 20:35
PROVIDERS: ADMIT Obstetrics & Gynecology; ATTEND Obstetrics & Gynecology
PROC: 10E0XZZ Delivery of Products of Conception, External Approach (ICD-10-PCS; principal; 2022-02-13)
PROC: 10907ZC Drainage of Amniotic Fluid, Therapeutic from Products of Conception, Via Natural or Artificial Opening (ICD-10-PCS; 2022-02-13)
PROC: 3E033VJ Introduction of Other Hormone into Peripheral Vein, Percutaneous Approach (ICD-10-PCS; 2022-02-13)
PROC: 3E0R3BZ Introduction of Anesthetic Agent into Spinal Canal, Percutaneous Approach (ICD-10-PCS; 2022-02-13)
PROC: 4A1HXCZ Monitoring of Products of Conception, Cardiac Rate, External Approach (ICD-10-PCS; 2022-02-13)
DX: O13.4 Gestational [pregnancy-induced] hypertension without significant proteinuria, complicating childbirth (principal); Z37.0 Single live birth; O99.824 Streptococcus B carrier state complicating childbirth; O69.81X0 Labor and delivery complicated by cord around neck, without compression, not applicable or unspecified; Z3A.37 37 weeks gestation of pregnancy; Z79.82 Long term (current) use of aspirin; Z87.440 Personal history of urinary (tract) infections; Z98.890 Other specified postprocedural states
CPT/HCPCS: 01967; 36415; 51701; 59025; 59409; 80053; 82570; 84156; 85027; 86592; 86850; 86900; 86901; A9270-GY; J0290; J2590; J3010; J3490; J7120

== ENCOUNTER 2024-08-27 01:20 | Inpatient (IN) | payer OTHER ==
[2024-08-27] MEDS ORDERED: Acetaminophen 325 MG Tab PO PRN (19:07)
[2024-08-27] MEDS ORDERED: Nalbuphine 10 MG/1 ML Vial IVPUSH PRN (19:07)
[2024-08-27] MEDS ORDERED: Lidocaine 1% 50 ML MDV INJECT PRN (19:07)
[2024-08-27] MEDS ORDERED: Ondansetron 4 MG/2 ML SDV IVPUSH PRN (19:07)
[2024-08-27] MEDS ORDERED: Sodium Chloride 0.9% 10 ML Syringe FLUSH PRN (19:07)
[2024-08-27] MEDS ORDERED: Misoprostol 25 MCG (1/4 of 100 MCG) Tab VAG PRN (19:07)
[2024-08-27] MEDS ORDERED: Oxytocin/0.9 % Sodium Chloride 30 UNIT/500 ML BAG IV SCH (19:15)
[2024-08-27 19:44] LABS: BASOPHILS PERCENT AUTO 0.2 % (0.0-1.0); EOSINOPHILS ABSOLUTE AUTO 0.1 K/mm3 (0.0-0.4); EOSINOPHILS PERCENT AUTO 0.4 % (0.0-6.0); HEMATOCRIT 36.7 % (37.0-47.0); HEMOGLOBIN 11.9 gm/dl (12.0-16.0); IMMATURE GRAN ABSOLUTE AUTO 0.13 K/mm3 (0.00-0.05); IMMATURE GRAN PERCENT AUTO 0.8 % (0.0-0.4); LYMPHOCYTES ABSOLUTE AUTO 2.7 K/mm3 (1.0-4.8); LYMPHOCYTES PERCENT AUTO 16.7 % (24.0-44.0); MEAN CORPUSCULAR HEMOGLOBIN 27.9 pg (28.0-32.0); MEAN CORPUSCULAR HGB CONC 32.4 g/dl (32.0-36.0); MEAN CORPUSCULAR VOLUME 86.2 fl (83.0-99.0); MEAN PLATELET VOLUME 12.1 fl (9.4-12.3); MONOCYTES ABSOLUTE AUTO 1.1 K/mm3 (0.0-0.8); NEUTROPHILS ABSOLUTE AUTO 11.9 K/mm3 (1.8-7.7); NEUTROPHILS PERCENT AUTO 74.9 % (41.0-71.0); PLATELET COUNT,PLT 203 K/mm3 (150-400); RED BLOOD CELL COUNT 4.26 M/mm3 (4.10-5.30); WHITE BLOOD CELL COUNT,WBC 15.86 K/mm3 (3.9-11.3)
[2024-08-27] MEDS: Lactated Ringers 1,000 ML IV SCH (22:37)
[2024-08-28] MEDS: Oxytocin/0.9 % Sodium Chloride 30 UNIT/500 ML BAG IV SCH (00:51)
[2024-08-28] MEDS ORDERED: Acetaminophen 325 MG Tab PO PRN (02:31)
[2024-08-28] MEDS ORDERED: Docusate Sodium 100 MG Cap PO PRN (02:31)
[2024-08-28] MEDS: Witch Hazel Medicated Pads 40/Jar TOP PRN (03:28)
[2024-08-28] MEDS: Benzocaine/Menthol 20%-0.5% Spray 78 GM Cannister TOP PRN (03:28)
[2024-08-28] MEDS: Misoprostol 25 MCG (1/4 of 100 MCG) Tab VAG ONE (04:12)
[2024-08-28] MEDS: Sodium Chloride 0.9% 10 ML Syringe FLUSH SCH (04:13)
[2024-08-28] MEDS: Ibuprofen 600 MG Tab PO SCH (05:49)
== END 2024-08-29 13:25 | disposition home or self-care (01) | DRG 807 ==
LOC: JD.OB 01:20 → OBSVTOIN 08-28 01:20 → JD.OB 08-28 01:21
PROVIDERS: ADMIT Obstetrics & Gynecology; ATTEND Obstetrics & Gynecology
PROC: 10E0XZZ Delivery of Products of Conception, External Approach (ICD-10-PCS; principal; 2024-08-28)
PROC: 10907ZC Drainage of Amniotic Fluid, Therapeutic from Products of Conception, Via Natural or Artificial Opening (ICD-10-PCS; principal; 2024-08-28)
DX: O48.0 Post-term pregnancy (principal); Z37.0 Single live birth; Z3A.40 40 weeks gestation of pregnancy; Z79.82 Long term (current) use of aspirin; Z79.899 Other long term (current) drug therapy; Z98.890 Other specified postprocedural states
CPT/HCPCS: 36415; 59025; 59409; 85025; 86592; 86850; 86900; 86901; A9270-GY; J7120; J7999